=== PATIENT | male | born 1970 | race Hispanic/Latino ===

== ENCOUNTER 2016-09-29 08:13 | Day surgery (SDC) | payer OTHER ==
[2016-08-08 08:43] VITALS: BMI 36.6
[2016-09-29] MEDS ORDERED: cefTRIAXone IV 1 gm in Dextros 50 ML IVPB ONE (10:57)
[2016-09-29] MEDS ORDERED: Lactated Ringer's 1,000 ML IV ONE (11:05)
[2016-09-29] MEDS ORDERED: Midazolam 2 MG/2 ML VIAL ONE (11:10)
[2016-09-29] MEDS ORDERED: Propofol 10 mg/ml Inj (20 ML) ONE ×2 (11:10→11:16)
[2016-09-29] MEDS ORDERED: HYDROmorphone 0.5 mg/0.5 ml ISec IVP PRN (11:28)
[2016-09-29 12:19] LABS: RBC URINE 6 /hpf (0-3); URINE BILIRUBIN NEGATIVE (NEGATIVE); URINE BLOOD 2+ (NEGATIVE); URINE COLOR Yellow (YELLOW); URINE GLUCOSE (UA) NORMAL (Normal); URINE KETONE NEGATIVE (NEGATIVE); URINE LEUKOCYTE ESTERASE NEG Leu/uL (Negative); URINE PROTEIN 1+ mg/dL (NEGATIVE); URINE UROBILINOGEN NORMAL mg/dL (0.2-1.0); WBC URINE 2 /hpf (0-5)
[2016-09-29 12:27] VITALS: RESP 20; TEMP 98.2
[2016-09-29 12:38] VITALS: BP 128/70; PULSE 68; O2SAT 99
--- NOTE | 2016-09-29 16:29 | OP ---
PROCEDURE DATE: 09/29/2016 PREOPERATIVE DIAGNOSIS: Microscopic hematuria. POSTOPERATIVE DIAGNOSIS: Benign prostatic hyperplasia. PROCEDURE: Cystoscopy. SURGEON: Dr. Bhargav Dobbs. DESCRIPTION OF PROCEDURE: He was brought to the operating room, prepped and draped in the usual fashion, placed under anesthesia and premedicated with Rocephin 1 g IV piggyback. Cystoscopy with a 17-[place] scope revealed a normal anterior and bulbar urethra. The prostate had some early BPH from the view. The bladder was entirely normal, except to some mild trabeculation. No tumors, calculi, or erythema were noted. There were no extensive masses. Both urethral orifices are normal in size, shape, and location. Initial urine was obtained when the cystoscope was introduced, sent for urine analysis, urinary culture and sensitivity and cytology. The scope was removed. The patient tolerated the procedure well. Bhargav Dobbs MD
== END 2016-09-29 12:38 | disposition home or self-care (01) ==
LOC: C.SDS 08:13
PROVIDERS: ATTEND Urology
DX: N40.1 Benign prostatic hyperplasia with lower urinary tract symptoms (principal); R31.29 Other microscopic hematuria
CPT/HCPCS: 52000; 81001; 82948; 87086; 88104; J0696; J7120

== ENCOUNTER 2018-05-24 14:13 | Outpatient (CLI) | payer OTHER | END 2018-05-24 14:14 | disposition home or self-care (01) | LOC: C.USIC 14:13 | DX: R31.29 Other microscopic hematuria (principal) ==